=== PATIENT | female | born 2000 | race Caucasian/White ===

== ENCOUNTER 2023-03-20 16:25 | Outpatient (OUT) | payer BC, SELFPAY ==
--- NOTE | 2023-03-20 | US_ITS ---
The [address] [address] Patient Name: ANABEL ARMIJO MRN: [id number] date: 2000 Sex: F Assigned Patient Location: US Current Patient Location: LAB Accession/Order Number: [id number] Exam Date: 03/20/2023 16:50 Report Date: 03/20/2023 17:44 At the request of: JAYNE REVELES Procedure: US venous doppler LE BI EXAM: US venous doppler LE BI HISTORY: D68.51 Factor 5 Leiden Mutation . Bilateral leg pain for the past week. COMPARISON: None. TECHNIQUE: Multiple sonographic images of the deep veins of the lower extremities were obtained, supplemented with Doppler. FINDINGS: The deep veins of both lower extremities are fairly well visualized from the groin to the mid calf. No filling defect is identified in either side to indicate a thrombus. There is normal compression augmentation to flow bilaterally. US/US venous doppler LE BI IMPRESSION: There is no direct or indirect evidence of deep vein thrombosis in the lower extremities at this time. Electronically authenticated by: KALEB NICHOLE Date: 03/20/2023 17:44
== END 2023-03-20 16:26 | disposition home or self-care (01) ==
LOC: US 16:30
PROVIDERS: PCP Family Medicine; Visit Provider Family Medicine
DX: D68.51 Activated protein C resistance (principal)
CPT/HCPCS: 93970

== ENCOUNTER 2023-03-21 08:43 | Outpatient (OUT) | payer BC, SELFPAY ==
--- OUTSIDE RECORDS SUMMARY | 2023-03-21 08:46 | XMS_ITS | CCD ---
Author Name Unknown Address [address] [place] [address] Organization [facility] Care Team Providers Care Office Equipment Mechanic Name Role Phone Jayne Au Primary Care Provider DR JAYNE AU Attending Unavailable DR JAYNE AU Consulting Unavailable DR JAYNE AU Primary Care Unavailable DR JAYNE AU Admitting Unavailable Jayne Au MD Primary Care Provider [phone] Jayne Au MD Primary Care Provider [phone] MARY ALICE SHAH Referring Unavailabl e JAYNE AU Primary Care Unavailable SAMMY JORGENSEN Attending Unavailable Allergies Allergy Classification Reported Allergen(s) Allergy Type Date of Onset Reaction(s) Facility (2 sources) Penicillins Drug Allergy 1 Vomiting [facility] (1 source) Estrogens Drug Allergy 1 Other (See Comments) [employer] Work Phone: (1 source) Penicillins Propensity to adverse reactions to drug 1 [employer] Medications Current Medications Medication Drug Class(es) Dates Sig (Normalized) Sig (Original) cetirizine hydrochloride 10 mg oral tablet (3 sources) Histamine-1 Receptor Antagonist take 1 tablet by mouth once daily cetirizine (ZYRTEC) 10 MG tablet Take 10 mg by mouth daily 0 Active Comment on above: Take 10 mg by mouth as needed. lamoTRIgine 100 mg oral tablet (1 source) Mood Stabilizer, Anti-epileptic Agent Start: 03-31-2022 take 1 tablet by mouth at bedtime lamoTRIgine (LAMICTAL) 100 MG tablet TAKE 1 TABLET BY MOUTH AT BEDTIME 0 03/31/2022 Active norethindrone 0.35 mg oral tablet (3 sources) Start: 05-17-2020 take 1 tablet by mouth once daily norethindrone (ORTHO MICRONOR) 0.35 MG tablet Indications: Irregular menses Take 1 tablet by mouth daily 84 tablet 4 04/25/2021 Active Comment on above: TAKE 1 TABLET BY KENYA TH ONCE DAILY FOR 28 DAYS Completed/Discontinued Medications Medication Drug Class(es) Dates Sig (Normalized) Sig (Original) 24 hr desvenlafaxine succinate 50 mg extended release oral tablet (2 sources) Serotonin and Norepinephrine Reuptake Inhibitor Start: 04-18-2021 take 1 tablet by mouth once daily, then take 1 tablet by mouth every twenty-four hours desvenlafaxine ER (PRISTIQ) 50 mg 24 hr tablet Take 50 mg by mouth once daily. 0 07/13/2021 Active Comment on above: Take 50 mg by mouth once daily. trifarotene 0.05 mg/ml topical cream (1 source) Start: 07-19-2021 AKLIEF 0.005 % crea Problems Problem Classification Problem Date Documented Da te Episodic/Chronic Coagulation and hemorrhagic disorders (7 sources) Activated protein C resistance; Translations: [Factor V Leiden mutation] Onset: 04-30-2020 Chronic Menstrual disorders (2 sources) Irregular periods; Translations: [Irregular menstruation, unspecified] Onset: 04-29-2022 Chronic Other screening for suspected conditions (not mental disorders or infectious disease) (2 sources) Cancer cervix screening status; Translations: [Encounter for screening for malignant neoplasm of cervix] Onset: 04-29-2022 Episodic Results Test Name Value Interpretation Reference Range Facility Chlamydia/GC DNA, TPon 05-01 Chlamydia Probe, TP Negative Normal NEG [facility] Comment on above: Result Comment: CHLA MYDIA TRACHOMATIS DNA not detected by nucleic acid amplification. This test is intended for medical purposes only and is not valid for the evaluation of suspected sexual abuse or for other forensic purposes. In certain contexts, culture may be required to meet applicable laws and regulations for diagnosis of C. trachomatis and N. gonorrhoeae infections. Per 2014 CDC recommendations, this test does not include confirmation of positive results by an alternative nucleic acid target. Performed By: #### [facility] #### [facility] [employer] [facility] [place] [address] Consumer Science Teacher: Catalino Zamora MD Gonorrhea Probe, TP Negative Normal NEG [facility] Comment on above: Result Comment: NEIS SERIA GONORRHOEAE DNA not detected by nucleic acid amplification. This test is intended for medical purposes only and is not valid for the evaluation of suspected sexual abuse or for other forensic purposes. In certain contexts, culture may be required to meet applicable laws and regulations for diagnosis of C. trachomatis and N. gonorrhoeae infections. Per 2014 CDC recommendations, this test does not include confirmation of positive results by an alternative nucleic acid target. Performed By: #### C YTCGP #### [employer] [facility] [place], [place] [id number] Consumer Science Teacher: Catalino Zamora MD Cytologyon 04-29-2022 Cytology (NOTE) INTERPRETATION Cervical material, (ThinPrep vial, Imaging-assisted review): Specimen Adequacy: Satisfactory for evaluation. - Endocervical/transform ation zone component present. Descriptive Diagnosis: Negative for intraepithelial lesion or malignancy. Reactive cellular changes associated with inflammation (encompasses typical repair). Ironmolder: SSFam Jackson M.D. Electronically Signed Out rdd/05/09/2022 Source: A: Cervical material, (ThinPrep vial, Imaging-assisted review) Clinical History Z12.4 Encounter for screening for malignant neoplasm of cervix LMP: 04/24/2022 GYNECOLOGIC CYTOLOGY REPORT Patient Name: ANABEL BARBOSA [facility] Rec: [id number] Path Number: [id number] [facility] CONSULTING PATHOLOGISTS [facility] ANATOMIC PATHOLOGY [address] [place] [phone] Normal [facility] Comment on above: Performed By: #### P PPVP #### [employer] [address] [place] [address] [id number] Consumer Science Teacher: Catalino Zamora MD CBC W Auto Differential pane l (Bld)on 07-22-2021 Basophils (Bld) [#/Vol] 10*3/uL Normal <0.11 [facility] Comment on above: Order Comment: Speci men Type: BLOOD SPECIMEN Ordering Facility: [facility] Address: [address] [place] [phone] Performed By: #### 5 7021-8 #### [facility] CLIA [id number] [address] [place] [address] Basophils/100 WBC (Bld) 0.3 % Normal [facility] Comment on above: Order Comment: Speci men Type: BLOOD SPECIMEN Ordering Facility: [facility] Address: [address] [place] [address] Performed By: #### 5 7021-8 #### [facility] CLIA [id number] [address] [place] [address] Differential cell count method Nom (Bld) Auto Normal [facility] Comment on above: Order Comment: Speci men Type: BLOOD SPECIMEN Ordering Facility: [facility] Address: [address] [place] [address] Performed By: #### 5 7021-8 #### [facility] CLIA [id number] [address] [place] [address] Eosinophils (Bld) [#/Vol] 0.28 10*3/uL Normal <0.46 [facility] Comment on above: Order Comment: Speci men Type: BLOOD SPECIMEN Ordering Facility: [facility] Address: [address] [place] [address] Performed By: #### 5 7021-8 #### [facility] CLIA [id number] [address] [place] [address] Eosinophils/100 WBC (Bld) 3.9 % Normal [facility] Comment on above: Order Comment: Speci men Type: BLOOD SPECIMEN Ordering Facility: [facility] Address: [address] [place] [address] Performed By: #### 5 7021-8 #### [facility] CLIA [id number] [address] [place] [address] Erythrocyte distribution width (RBC) [Ratio] 12.5 % Normal 11.5-15.0 [facility] Comment on above: Order Comment: Speci men Type: BLOOD SPECIMEN Ordering Facility: [facility] Address: [address] [place] [address] Performed By: #### 5 7021-8 #### [facility] CLIA [id number] [address] [place] [address] Hematocrit (Bld) [Volume fraction] 46.1 % High 36.0-46.0 [facility] Comment on above: Order Comment: Speci men Type: BLOOD SPECIMEN Ordering Facility: [facility] Address: [address] [place] [address] Performed By: #### 5 7021-8 #### [facility] CLIA [id number] [address] [place], [place] [phone] Hemoglobin (Bld) [Mass/Vol] 15.4 g/dL Normal 11.5-15.5 [facility] Comment on above: Order Comment: Speci men Type: BLOOD SPECIMEN Ordering Facility: [facility] Address: [address] [place] [address] Performed By: #### 5 7021-8 #### [facility] CLIA [id number] [address] [place] [address] IMMATURE GRAN % 1.5 % Normal [facility] Comment on above: Order Comment: Speci men Type: BLOOD SPECIMEN Ordering Facility: [facility] Address: [address] [place] [address] Performed By: #### 5 7021-8 #### [facility] CLIA [id number] [address] [place] [address] IMMATURE GRAN ABS 0.11 k/uL High <0.10 [facility] Comment on above: Order Comment: Speci men Type: BLOOD SPECIMEN Ordering Facility: [facility] Address: [address] [place] [address] Performed By: #### 5 7021-8 #### [facility] CLIA [id number] [address] [place] [address] Lymphocytes (Bld) [#/Vol] 2.14 10*3/uL Normal 1.00-4.00 [facility] Comment on above: Order Comment: Speci men Type: BLOOD SPECIMEN Ordering Facility: [facility] Address: [address] [place] [address] Performed By: #### 5 7021-8 #### [facility] CLIA [id number] [address] [place] [address] Lymphocytes/100 WBC (Bld) 30.1 % Normal [facility] Comment on above: Order Comment: Speci men Type: BLOOD SPECIMEN Ordering Facility: [facility] Address: [address] [place] [address] Performed By: #### 5 7021-8 #### [facility] CLIA [id number] [address] [place] [address] MCH (RBC) [Entitic mass] 27.9 pg Normal 26.0-34.0 [facility] Comment on above: Order Comment: Speci men Type: BLOOD SPECIMEN Ordering Facility: [facility] Address: [address] [place] [address] Performed By: #### 5 7021-8 #### [facility] CLIA [id number] [address] [place] [address] MCHC (RBC) [Mass/Vol] 33.4 g/dL Normal 30.5-36.0 [facility] Comment on above: Order Comment: Speci men Type: BLOOD SPECIMEN Ordering Facility: [facility] Address: [address] [place], [place] [address] Performed By: #### 5 7021-8 #### [facility] CLIA [id number] [address] [place] [address] MCV (RBC) [Entitic vol] 83.7 fL Normal 80.0-100.0 [facility] Comment on above: Order Comment: Speci men Type: BLOOD SPECIMEN Ordering Facility: [facility] Address: [address] [place], [place] [address] Performed By: #### 5 7021-8 #### [facility] CLIA [id number] [address] [place] [address] Monocytes (Bld) [#/Vol] 0.47 10*3/uL Normal <0.87 [facility] Comment on above: Order Comment: Speci men Type: BLOOD SPECIMEN Ordering Facility: [facility] Address: [address] [place] [address] Performed By: #### 5 7021-8 #### [facility] CLIA [id number] [address] [place] [address] Monocytes/100 WBC (Bld) 6.6 % Normal [facility] Comment on above: Order Comment: Speci men Type: BLOOD SPECIMEN Ordering Facility: [facility] Address: [address] [place] [address] Performed By: #### 5 7021-8 #### [facility] CLIA [id number] [address] [place] [address] Neutrophils (Bld) [#/Vol] 4.09 10*3/uL Normal 1.45-7.50 [facility] Comment on above: Order Comment: Speci men Type: BLOOD SPECIMEN Ordering Facility: [facility] Address: [address] [place] [address] Performed By: #### 5 7021-8 #### [facility] CLIA [id number] [address] [place] [address]29 Neutrophils/100 WBC (Bld) 57.6 % Normal [facility] Comment on above: Order Comment: Speci men Type: BLOOD SPECIMEN Ordering Facility: [facility] Address: [address] [place] [address] Performed By: #### 5 7021-8 #### [facility] CLIA [id number] [address] [place] [address] 11907 Nucleated RBC (Bld) [#/Vol] 10*3/uL Normal <0.01 [facility] Comment on above: Order Comment: Speci men Type: BLOOD SPECIMEN Ordering Facility: [facility] Address: [address] [place], [place] [address] Performed By: #### 5 7021-8 #### [facility] CLIA [id number] [address] [place] [address] Nucleated RBC/100 WBC (Bld) [Ratio] 0.0 /100 WBC Normal [facility] Comment on above: Order Comment: Speci men Type: BLOOD SPECIMEN Ordering Facility: [facility] Address: [address] [place] [address] Performed By: #### 5 7021-8 #### [facility] CLIA [id number] [address] [place] [address]17 Platelet mean volume (Bld) [Entitic vol] 9.0 fL Normal 9.0-12.7 [facility] Comment on above: Order Comment: Speci men Type: BLOOD SPECIMEN Ordering Facility: [facility] Address: [address] [place] [address] Performed By: #### 5 7021-8 #### [facility] CLIA [id number] [address] [place] [address]8547 Platelets (Bld) [#/Vol] 314 10*3/uL Normal 150-400 [facility] Comment on above: Order Comment: Speci men Type: BLOOD SPECIMEN Ordering Facility: [facility] Address: [address] [place], [place] [address] Performed By: #### 5 7021-8 #### [facility] CLIA [id number] [address] [place] [address]99 RBC (Bld) [#/Vol] 5.51 10*6/uL High 3.90-5.20 [facility] Comment on above: Order Comment: Speci men Type: BLOOD SPECIMEN Ordering Facility: [facility] Address: [address] [place] [address] Performed By: #### 5 7021-8 #### [facility] CLIA [id number] [address] [place] [address] WBC (Bld) [#/Vol] 7.11 10*3/uL Normal 3.70-11.00 [facility] Comment on above: Order Comment: Speci men Type: BLOOD SPECIMEN Ordering Facility: [facility] Address: [address] [place] [address] Performed By: #### 5 7021-8 #### [facility] CLIA [id number] [address] [place] [address] CNOVSPon 07-22-2021 CNOVSP Visit (SP) Office ([place]) ANABEL BARBOSA ([id number]) 1 F Date Time Provider Department 07/22/21 10:00 AM JERMAINE MOYA During your visit today, we recorded the following information about you: Temperature Pulse Respiration Blood pressure 98.8 degrees 78/minute 16/minute 111/64 Weight Height Last Period 47 kg 1.499 m 06/26/20 Jermaine Moya MD 07/23/2021 11:22 AM Signed NAME: Anabel Barbosa CLINIC NO.: [id number] DATE OF SERVICE: July 22, 2021 Some elements in this clinic note that are critical to medical decision making have been carefully reviewed and included from a prior clinic note dated: May 28, 2020 Referring Provider: Jayne Au Additional Clinicians involved in Anabel Sharon's care: CC: Consultation for factor V leiden. ASSESSMENT: 20 year old woman who is otherwise healthy found to be heterozygous for Factor V Leiden mutation which represents a resistance to activated protein C. There is no recommended prophylaxis except for minimizing risk factors such as estrogen containing control, smoking, inactivity, , surgery and injury. It would be velez for her to have at least Bi-annual visits with a inner diameter grinder tool. PLAN: 1. RTC in 2 year, Repeat CBC. TREATMENT TO DATE: 1. N/A HPI: Updated Visit, July 22, 2021: Graduated from [employer] with communications major and sociology minor. 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 She is doing well and has no immediate issues or concerns. No thrombotic events. No excessive bleeding Initial Visit, May 28, 2020: Anabel Barbosa presents today Hematology and Oncology evaluation. She is a 19 year old female who is accompanied by her mother Kyara Rodriguez for consultation regarding a newly diagnosed Factor V Leiden. She is a heterozygote as is her sister. Workup was prompted because her Father had DVT and subsequent PE. The following workup showed him to have Factor V leiden. She has no other symptoms and has no notable risk factors for now. She was recently changed to a non-estrogen BCP. We discussed in detail potential risks of clotting. There was a concern for easy bruising but the patient states that this has not been an issue but may have been many (5-6) yearsago. She has no evidence of bruising on visible skin. She has multiple tattoos without any issues. Coags were normal as was her CBC, CMP. REVIEW OF SYSTEMS Per HPI and otherwise negative by full review of organ systems. ECOG PERFORMANCE STATUS: 0 PHYSICAL EXAMINATION: Vitals: BP 111/64 Pulse 78 Temp (Src) 98.8 (Temporal) Resp 16 Ht 4' 11.016 (1.50m) Wt 103 lb 9.6 oz (47.0kg) SpO2 100% LMP 06/26/2020 BMI 20.91 kg/(m2). Body surface area is 1.4 meters squared. Exam limited to gross visualization where appropriate due to COVID-19. Gen.: This is an age-appropriate patient in no acute distress. Head: Appears atraumatic with no visible lesions. Eyes: Pupils equally round and reactive to light, extraocular muscles are intact. Neck: Supple. Mouth: Mucous membranes appeared to be moist. Respiratory: Appears to be respiring comfortably. Neurologic: Nonfocal to gross visualization. Alert and oriented ?3. Psychiatric: No evidence of inappropriate anxiety or depression. Skin: Visible areas of skin without rash, lesions, wounds or petechiae. ALLERGIES: ALLERGIES Allergen Reactions - Penicillins Vomiting MEDICATIONS: desvenlafaxine ER (PRISTIQ) 50 mg 24 hr tablet Take 50 mg by mouth once daily. AKLIEF 0.005 % crea Norethindrone, Contraceptive, 0.35 mg tablet TAKE 1 TABLET BY MOUTH ONCE DAILY FOR 28 DAYS cetirizine (ZYRTEC) 10 mg tablet Take 10 mg by mouth as needed. LABORATORY VALUES: WBC (k/uL) Date Value 07/22/2021 7.11 RBC (m/uL) Date Value 07/22/2021 5.51 (H) Hemoglobin (g/dL) Date Value 07/22/2021 15.4 Hematocrit (%) Date Value 07/22/2021 46.1 (H) MCV (fL) Date Value 07/22/2021 83.7 MCH (pg) Date Value 07/22/2021 27.9 MCHC (g/dL) Date Value 07/22/2021 33.4 RDW-CV (%) Date Value 07/22/2021 12.5 Platelet Count (k/uL) Date Value 07/22/2021 314 MPV (fL) Date Value 07/22/2021 9.0 Glucose (mg/dL) Date Value 07/22/2021 65 (L) BUN (mg/dL) Date Value 07/22/2021 13 Creatinine (mg/dL) Date Value 07/22/2021 0.61 Sodium (mmol/L) Date Value 07/22/2021 140 Potassium (mmol/L) Date Value 07/22/2021 3.9 Chloride (mmol/L) Date Value 07/22/2021 102 CO2 (mmol/L) Date Value 07/22/2021 26 Protein, Total (g/dL) Date Value 07/22/2021 7.8 Albumin (g/dL) Date Value 07/22/2021 4.9 Calcium, Total (mg/dL) Date Value 07/22/2021 10.0 Alkaline Phosphatase (U/L) Date Value 07/22/2021 61 Bilirubin, Total (mg/dL) Date Value 07/22/2021 0.2 AST (U/L) Date Value 07/22/2021 18 ALT (U/L) Date Value 07/22/2021 18 DIAGNOSIS: (D68.51) Factor V Leiden carrier (HCC) (pr (more content not included)... Normal [facility] metabolic 2000 panelon 07-22-2021 Albumin [Mass/Vol] 4.9 g/dL Normal 3.9-4.9 [facility] Comment on above: Order Comment: Speci men Type: BLOOD SPECIMEN Ordering Facility: [facility] Address: [address] [place] [address] Performed By: #### 2 4323-8 #### [facility] CLIA [id number] [address] [place] [address] ALP [Catalytic activity/Vol] 61 U/L Normal 34-123 [facility] Comment on above: Order Comment: Speci men Type: BLOOD SPECIMEN Ordering Facility: [facility] Address: [address] [place] [address] Performed By: #### 2 4323-8 #### [facility] CLIA [id number] [address] [place] [address] ALT [Catalytic activity/Vol] 18 U/L Normal 7-38 [facility] Comment on above: Order Comment: Speci men Type: BLOOD SPECIMEN Ordering Facility: [facility] Address: [address] [place] [address] Performed By: #### 2 4323-8 #### [facility] CLIA [id number] [address] [place] [address] Anion gap [Moles/Vol] 12 mmol/L Normal 9-18 [facility] Comment on above: Order Comment: Speci men Type: BLOOD SPECIMEN Ordering Facility: [facility] Address: [address] [address] Performed By: #### 2 4323-8 #### [facility] CLIA [id number] [address] [place] [address] AST [Catalytic activity/Vol] 18 U/L Normal 13-35 [facility] Comment on above: Order Comment: Speci men Type: BLOOD SPECIMEN Ordering Facility: [facility] Address: [address] [address] Performed By: #### 2 4323-8 #### [facility] CLIA [id number] [address] [place] [address] Bilirubin [Mass/Vol] 0.2 mg/dL Normal 0.2-1.3 [facility] Comment on above: Order Comment: Speci men Type: BLOOD SPECIMEN Ordering Facility: [facility] Address: [address] [place] [address] Performed By: #### 2 4323-8 #### [facility] CLIA [id number] [address] [place] [address] Calcium [Mass/Vol] 10.0 mg/dL Normal 8.5-10.2 [facility] Comment on above: Order Comment: Speci men Type: BLOOD SPECIMEN Ordering Facility: [facility] Address: [address] [place] [address] Performed By: #### 2 4323-8 #### [facility] CLIA [id number] [address] [place] [address] Chloride [Moles/Vol] 102 mmol/L Normal 97-105 [facility] Comment on above: Order Comment: Speci men Type: BLOOD SPECIMEN Ordering Facility: [facility] Address: [address] [place] [address] Performed By: #### 2 4323-8 #### [facility] CLIA [id number] [address] [place] [address]66 CO2 [Moles/Vol] 26 mmol/L Normal 22-30 [facility] Comment on above: Order Comment: Speci men Type: BLOOD SPECIMEN Ordering Facility: [facility] Address: [address] [place] [address] Performed By: #### 2 4323-8 #### [facility] CLIA [id number] [address] [place] [address] Creatinine [Mass/Vol] 0.61 mg/dL Normal 0.58-0.96 [facility] Comment on above: Order Comment: Speci men Type: BLOOD SPECIMEN Ordering Facility: [facility] Address: [address] [id number] Performed By: #### 2 4323-8 #### [facility] CLIA [id number] [address] [place] [address] ESTIMATED GLOMERULAR FILTRATION RATE 131 mL/min/1.73m??? Normal >=60 [facility] Comment on above: Order Comment: Speci men Type: BLOOD SPECIMEN Ordering Facility: [facility] Address: [address] [place] [address] Result Comment: Graciela mated Glomerular Filtration Rate (eGFR) is calculated using the 2020 CKD-EPI creatinine equation. This equation utilizes serum creatinine, sex, and age as parameters. The creatinine assay has traceable calibration to isotope dilution-mass spectrometry. Refer to KDIGO guidelines for clinical interpretation. In patients with unstable renal function, e.g. those with acute kidney injury, the eGFR may not accurately reflect actual GFR. Performed By: #### 2 4323-8 #### [facility] CLIA [id number] [address] [place], [place] [id number] Glucose [Mass/Vol] 65 mg/dL Low 74-99 [facility] Comment on above: Order Comment: Radhai seun Type: BLOOD SPECIMEN Ordering Facility: [facility] Address: [address] [place] [address] Result Comment: The [place] Diabetes Association (ADA) provides guidance for cutoff values for fasting glucose and random glucose. The ADA defines fasting as no caloric intake for at least 8 hours. Fasting plasma glucose results between 100 to 125 mg/dL indicate increased risk for diabetes (prediabetes). Fasting plasma glucose results greater than or equal to 126 mg/dL meet the criteria for diagnosis of diabetes. In the absence of unequivocal hyperglycemia, results should be confirmed by repeat testing. In a patient with classic symptoms of hyperglycemia or hyperglycemic crisis, random plasma glucose results greater than or equal to 200 mg/dL meet the criteria for diagnosis of diabetes. Reference: Standards of Medical Care in Diabetes 2016, [place] [employer] Association. Diabetes Care. 2016.39(Suppl 1). Performed By: #### 2 4323-8 #### [facility] CLIA [id number] [address] [place] [id number] Potassium [Moles/Vol] 3.9 mmol/L Normal 3.7-5.1 [facility] Comment on above: Order Comment: Speci men Type: BLOOD SPECIMEN Ordering Facility: [facility] Address: [address] [place] [address] Performed By: #### 2 4323-8 #### [facility] CLIA [id number] [address] [place] [address] 84571 Protein [Mass/Vol] 7.8 g/dL Normal 6.3-8.0 [facility] Comment on above: Order Comment: Speci men Type: BLOOD SPECIMEN Ordering Facility: [facility] Address: [address] [place] [address] Performed By: #### 2 4323-8 #### [facility] CLIA [id number] [address] [place], [place] [id number] Sodium [Moles/Vol] 140 mmol/L Normal 136-144 [facility] Comment on above: Order Comment: Speci men Type: BLOOD SPECIMEN Ordering Facility: [facility] Address: [address] [place] [address] Performed By: #### 2 4323-8 #### [facility] CLIA [id number] [address] [place] [address] Urea nitrogen [Mass/Vol] 13 mg/dL Normal 7-21 [facility] Comment on above: Order Comment: Speci men Type: BLOOD SPECIMEN Ordering Facility: [facility] Address: [address] [place] [address] Performed By: #### 2 4323-8 #### [facility] CLIA [id number] [address] [place] [address] Emi 07-15-2021 LEE ANN Telephone (HEMASA) ALEKSANDERANABEL ([id number]) 1 F Date Time Provider Department 07/15/21 JERMAINE MOYA During your visit today, we recorded the following information about you: Lakeshia Philip MA 07/15/2021 3:45 PM Signed Patient has an appt on 07/22/21. Would you like labs, if so please place orders. CELESTE Carl MD 07/16/2021 8:14 AM Signed Addended by: JERMAINE MOYA on: 07/16/2021 08:14 AM Modules accepted: Orders Allergies As of Date: 07/15/2021 Noted Allergy Reaction PENICILLINS 04/18/2020 11 - Vomiting Date Reviewed: 07/15/2021 Reviewed by: Jaret Angulo APRN.DIESEL STATIONARY ENGINEER - Fully Assessed Reason for Visit: Lab Orders [1688] Primary Visit Diagnosis:Factor V Leiden carrier (HCC) [D68.51] Order(s):CBC + DIFF [SQCBCDIF] Order #: [id number] FUTURE COMP METABOLIC PANEL [SQCMP] Order #: [id number] FUTURE CBC + DIFF [SQCBCDIF] Order #: [id number] FUTURE COMP METABOLIC PANEL [SQCMP] Order #: [id number] FUTURE Prescriptions as of 07/16/2021 - Norethindrone, Contraceptive, 0.35 mg tablet TAKE 1 TABLET BY MOUTH ONCE DAILY FOR 28 DAYS - cetirizine (ZYRTEC) 10 mg tablet Take 10 mg by mouth as needed. Problem List As Of Date: 07/15/2021 (None) Encounter Status:Closed by JARET ANGULO on 07/15/21 Normal [facility] FACTOR V LEIDEN MUTATION HORACIO LYSISon 05-14-2020 Comments Comment Normal [facility] Comment on above: Result Comment: Simu ltaneous Risks: If a patient possesses two or more congenital or acquired thrombophilic risk factors, the risk of thrombosis may rise to more than the sum of the risk ratios for the individual risk factors. For instance, a combination of the prothrombin [id number] mutation and the factor V Leiden mutation may confer an increase in thrombotic risk in the range of 20-30 fold. Recommendations for Genetic Counseling: The factor V Leiden mutation is an inherited characteristic. If the mutation is present, we recommend that the patient and their family consider genetic counseling to obtain additional information on inheritance and to identify other family members at risk. Testing Characteristics: Genetic testing provides exceptionally high sensitivity and specificity. Inaccurate results are limited to rare polymorphisms in primer binding sites and to misidentification of specimens by collectors or laboratory personnel. This assay detects only the factor V Leiden mutation and does not detect other genetic abnormalities. This test was developed and its performance characteristics determined by [employer]. It has not been cleared or approved by the Food and Drug Administration. References: Kelley CASH, et al. Thromb Haemost. 1995;74:449. Jack Noel Mol.Diagn. 2001;6(3):201. Bryanna J, et al. Thromb Haemost. 2001;86:809-16. Moi C, et al. Thromb Haemost. 1996;76:229. Performed By: #### F VLREF #### [facility] [address] [place] [address] Patrice Arceo Factor V Leiden Results Comment Normal [facility] Comment on above: Result Comment: G-A (Normal-Mutant) Positive - Heterozygous for factor V Leiden mutation. Performed By: #### F VLREF #### [facility] [address] [place] [address] Patrice Arceo Interpretation Comment Normal [facility] Comment on above: Result Comment: The factor V Leiden mutation is present on one copy of the patient's factor V gene. Presence of the heterozygous factor V Leiden mutation confers an approximate 5-fold increase in the risk of venous thrombosis. Performed By: #### F VLREF #### [facility] [address] [place] [address] Patrice Arceo Methodology Comment Normal [facility] Comment on above: Result Comment: Remedios ent DNA was evaluated for the factor V Leiden mutation at nucleotide 1691 using allele specific PCR technology followed by gel electrophoresis. Performed By: #### F VLREF #### [facility] [address] [place] [address] Patrice Arceo VENOUS THROMBOSIS PROFILEon 05-11-2020 Act. Prt Resist w/FV Defic. 1.9 ratio Critically low [facility] Comment on above: Result Comment: A lo w activated protein C resistance (APCR) is a risk factor for venous thrombosis and is a screen for the Factor V Leiden mutation. Consider molecular analysis for this mutation. Other causes for abnormal APCR are uncommon and include other rare mutations in the Factor V molecule, and certain drug therapies, including thalidomide therapy, presence of a lupus anticoagulant, increased Factor VIII levels, and autoantibodies against activated protein C. Reference Range: 2.2 - 3.5 Performed By: #### V ENTBP #### [facility] [address] [place] [address] Patrice Arceo Anticardiolipin Ab, IgG <10 Normal [facility] Comment on above: Result Comment: Refe rence Range: Negative: <15 Indeterminate: 15 - 20 Low to medium positive: >20 - 80 High positive: >80 Performed By: #### V ENTBP #### [facility] [address] [place] [address] Patrice Arceo Anticardiolipin Ab, IgM 13 MPL Normal [facility] Comment on above: Result Comment: Refe rence Range: Negative: <13 Indeterminate: 13 - 20 Low to medium positive: >20 - 80 High positive: >80 Performed By: #### V ENTBP #### [facility] [address] [place], [place] [id number] Patrice Arceo Antithrombin Activity Plasma 106 % Normal [facility] Comment on above: Result Comment: Dire ct oral anticoagulants such as rivaroxaban, apixaban and edoxaban will lead to spuriously elevated antithrombin activity levels possibly masking a deficiency. Reference Range: 7 months and older: 75 - 135 Performed By: #### V ENTBP #### [facility] [address] [place], [place] [id number] Patrice Arceo APTT 1:1 RD PROJECT MANAGER NIY Normal [facility] Comment on above: Result Comment: Test ing Not Indicated Not indicated This test was developed and its performance characteristics determined by [employer]. It has not been cleared or approved by the [place] Food and Drug Administration. Performed By: #### V ENTBP #### [facility] [address] [address] Patrice Arceo APTT 1:1 Saline NIY Normal The [facility] Comment on above: Result Comment: Test ing Not Indicated Not indicated This test was developed and its performance characteristics determined by [employer]. It has not been cleared or approved by the Food and Drug Administration. Performed By: #### V ENTBP #### [facility] [address] [id number] Patrice Arceo aPTT Coag (Bld) [Time] 25.6 s Normal [facility] Comment on above: Result Comment: This test has not been validated for monitoring unfractionated heparin therapy. aPTT-based therapeutic ranges for unfractionated heparin therapy have not been established. Consider ordering Heparin anti-Xa (unfractionated). Reference Range: 18 years and older: 22.9 - 30.2 Performed By: #### V ENTBP #### [facility] [address] [address] Patricehima Arceo Beta-2 Glycoprotein I, IgA <10 Normal [facility] Comment on above: Result Comment: The reference interval reflects a 3SD or 99th percentile interval. Reference Range: Negative: <26 Performed By: #### V ENTBP #### [facility] [address] [place] [address] Patrice Arceo Beta-2 Glycoprotein I, IgG <10 Normal [facility] Comment on above: Result Comment: The reference interval reflects a 3SD or 99th percentile interval, which is thought to represent a potentially clinically significant result in accordance with the International Consensus Statement on the classification criteria for definitive antiphospholipid syndrome (APS). J Thromb Wfif4149;4:295-306. Reference Range: Negative: <21 Performed By: #### V ENTBP #### [facility] [address] [place], [place] [id number] Patricehima Sheareren Beta-2 Glycoprotein I, IgM 12 SMU Normal [facility] Comment on above: Result Comment: The reference interval reflects a 3SD or 99th percentile interval, which is thought to represent a potentially clinically significant result in accordance with the International Consensus Statement on the classification criteria for definitive antiphospholipid syndrome (APS). J Thromb Onwg2547;4:295-306. Reference Range: Negative: <33 Performed By: #### V ENTBP #### [facility] [address] [place], [place] [address] Patrice Arceo Comments: Comment Normal [facility] Comment on above: Result Comment: Simu ltaneous Risks: If a patient possesses two or more congenital or acquired thrombophilic risk factors, the risk of thrombosis may rise to more than the sum of the risk ratios for the individual risk factors. For instance, a combination of the prothrombin [id number] mutation and the factor V Leiden mutation may confer an increase in thrombotic risk in the range of 20-30 fold. Recommendations for Genetic Counseling: The prothrombin gene mutation is an inherited characteristic. If the mutation is present, we recommend that the patient and their family consider genetic counseling to obtain additional information on inheritance and to identify other family members at risk. Testing Characteristics: Genetic testing provides exceptionally high sensitivity and specificity. Inaccurate results are limited to rare polymorphisms in primer binding sites and to misidentification of specimens by collectors or laboratory personnel. This assay detects only the prothrombin [id number] mutation and does not detect other genetic abnormalities. This test was developed and its performance characteristics determined by [employer]. It has not been cleared or approved by the Food and Drug Administration. References: Phil K, et al. Br J of Haem. 1997;98:907. Mckenzie STANFORD, et al. Br J of Haem. 1997;98:353. Keyla-Reid and Mik Mol.Diagn. 2001;6(3):201. Bryanna Mann, et al. Thromb Haemost. 2001;86:809-16. Marta Bryant et al. Thromb Haemost. 1999;82:1583. Performed By: #### V ENTBP #### [facility] [address] [place], [place] [address] Patrice Arceo DRVVT Confirm Seconds NIY Normal [facility] Comment on above: Result Comment: Test ing Not Indicated Not indicated Performed By: #### V ENTBP #### [facility] [address] [place], [place] [address] Patrice Arceo DRVVT Ratio NIY Normal [facility] Comment on above: Result Comment: Test ing Not Indicated Not indicated Performed By: #### V ENTBP #### [facility] [address] [id number] Patrice Marielos DRVVT Screen Seconds 33.2 sec Normal [facility] Comment on above: Result Comment: Refe rence Range: <= 47.0 Performed By: #### V ENTBP #### [facility] [address] [place] [address] Patricehima Arceo Factor II Gene Mutation Comment Normal [facility] Comment on above: Result Comment: G-G (Normal-Normal) No prothrombin [id number] mutation present. Performed By: #### V ENTBP #### [facility] [address] [place] [address] Patrice Arceo Factor VIII Activity 150 % Normal [facility] Comment on above: Result Comment: Refe rence Range: 57 - 163 Performed By: #### V ENTBP #### [facility] [address] [place] [address] Patrice Arceo Hexagonal Phospholipid Neutral 0 sec Normal [facility] Comment on above: Result Comment: This value is NEGATIVE. This is a qualitative assay and is therefore reported as positive for lupus anticoagulant or negative. The quantitative value is provided as an aid in diagnosis. Reference Range: 0 - 11 Performed By: #### V ENTBP #### [facility] [address] [place] [address] Patrice Marielos Homocysteine 6.8 umol/L Normal [facility] Comment on above: Result Comment: Homo cysteine levels in patients >60 years increase 1-2 umol/L. Reference Range: 5.0 - 15.0 Performed By: #### V ENTBP #### [facility] [address] [place], [place] [id number] Patrice Marielos Interpretation Comment Normal [facility] Comment on above: Result Comment: Whil e the patient does not possess this risk factor, other thrombotic risk factors may be detected through systematic clinical laboratory analysis. Performed By: #### V ENTBP #### [facility] [address] [place], [place] [id number] Patrice Marielos LAC Interpretation Comment Normal [facility] Comment on above: Result Comment: A maxine pus anticoagulant is not detected. All antiphospholipid antibodies evaluated are normal. As antibody titers may fluctuate with time, repeat testing may be indicated. Please contact [employer] [facility] if further clarification is needed. Performed By: #### V ENTBP #### [facility] [address] [place], [place] [address] Patrice Arceo Methodology Comment Normal [facility] Comment on above: Result Comment: Remedios ent DNA was evaluated for the factor II gene mutation at nucleotide using PCR amplification followed by restriction analysis and gel electrophoresis. Performed By: #### V ENTBP #### [facility] [address] [place], [place] [address] Patrice Arceo Protein S Antigen Free 89 % Normal [facility] Comment on above: Result Comment: Refe rence Range: 7 months and older: 57 - 157 This test was developed and its performance characteristics determined by [employer]. It has not been cleared or approved by the Food and Drug Administration. Performed By: #### V ENTBP #### [facility] [address] [place], [place] [address] Patrice Arceo Prt C Activity (Chromogenic) 150 % Normal [facility] Comment on above: Result Comment: Refe rence Range: 17 years and older: 73 - 180 Performed By: #### V ENTBP #### [facility] [address] [place] [address] Patrice Arceo Vital Signs Date Time Vital Sign Value Performing Clinician Deb catherine 07-22-2021 09:53-0400 Body height 149.9 cm Jermaine Moya MD Work Phone: [facility] 07-22-2021 09:53-0400 Body temperature 98.8 [degF] Jermaine Moya MD Work Phone: [facility] 07-22-2021 09:53-0400 Body weight 46.99 kg Jermaine Moya MD Work Phone: [facility] 07-22-2021 09:53-0400 Diastolic blood pressure 64 mm[Hg] Jermaine Moya MD Work Phone: [facility] 07-22-2021 09:53-0400 Heart rate 78 /min Jermaine Moya MD Work Phone: [facility] 07-22-2021 09:53-0400 Respiratory rate 16 /min Jermaine Moya MD Work Phone: [facility] 07-22-2021 09:53-0400 SaO2% (BldA) [Mass fraction] 100 % Jermaine Moya MD Work Phone: [facility] 07-22-2021 09:53-0400 Systolic blood pressure 111 mm[Hg] Jermaine Moya MD Work Phone: [facility] Encounters Encounter Date Encounter Type Care Provider Facility Start: 03-13-2023 End: 03-13-2023 ambulatory SAMMY JORGENSEN Not Available Start: 04-29-2022 End: 04-30-2022 ambulatory MARY ALICE SHAH [facility] Start: 04-29-2022 End: 04-29-2022 Subsequent hospital visit by physician Jayne Au MD Work Phone: [facility] Comment on above: Irregular menses; Screening for malignant neoplasm of cervix Start: 07-22-2021 End: 07-22-2021 ambulatory Jermaine Moya MD Work Phone: Hematology/Oncology Comment on above: Factor V Leiden goff ier (HCC) (Primary Dx) Start: 07-22-2021 End: 07-22-2021 Patient encounter procedure Jermaine Moya MD Work Phone: [facility] Start: 07-15-2021 Telephone encounter Jermaine navas MD Work Phone: Hematology/Oncology Comment on above: Lab Orders Start: 05-24-2020 End: 05-24-2020 Chart abstracting Jermaine Moya Work Phone: Hematology/Oncology Start: 05-16-2020 End: 05-16-2020 Patient encounter procedure External Provider [facility] Start: 05-16-2020 Results Only External Provider Exter nal-Non[facility] Start: 04-30-2020 End: 05-01-[address] JAYNE AU Facility:[facility]1 Procedures Date Procedure Procedure Detail Performing Clinician Start: 07-22-2021 Adult depression screening assessment Jermaine Moya MD Work Phone: Start: 05-16-2020 EXTERNAL LAB External P cayla Plan of Treatment Date Care Activity Detail Author Start: 04-30-2023 End: 04-30-2023 Patient encounter procedure 04/30/2023 Office Visit Obstetrics and Gynecology Mary Alice Shah, SLEEVE TAILOR - CN [address] [facility] [address] [place] [address] [facility] Start: 08-26-2022 DTaP/Tdap/Td vaccine (7 - Td or Tdap) DTaP/Tdap/Td vaccine (7 - Td or Tdap) [facility] Start: 07-23-2022 End: 07-23-2022 Nursing evaluation of patient and report 07/23/2022 Nurse Only Obstetrics and Gynecology [facility] Start: 07-22-2022 Adult depression screening assessment DEPRESSION SCREENING [facility] Start: 11-07-2021 Influenza vaccination INFLUENZ A (Season Ended) [facility] Start: 10-07-2021 Influenza vaccination Flu vaccine (# 1) [facility] Start: 2021 Screening for malign ant neoplasm of cervix Pap smear [facility] Start: 07-25-2021 End: 07-22-2022 CBC W Auto Differential panel - Blood CBC + DIFF Lab Routine Factor V Leiden carrier (HCC) Expected: 07/25/2021 (Approximate), Expires: 07/22/2022 [facility] Work Phone: Comment on above: Expected: 07/25/2021 (Approximate), Expires: 07/22/2022 Start: 07-15-2021 End: 09-14-2021 CBC W Auto Differential panel - Blood CBC + DIFF Lab Routine Factor V Leiden carrier (HCC) Expected: 07/15/2021, Expires: 09/14/2021 [facility] Work Phone: Comment on above: Expected: 07/15/2021 , Expires: 09/14/2021 Start: 07-15-2021 End: 09-14-2021 Comprehensive metabolic 2000 panel - Serum or Plasma COMP METABOLIC PANEL Lab Routine Factor V Leiden carrier (HCC) Expected: 07/15/2021, Expires: 09/14/2021 [facility] Work Phone: Comment on above: Expected: 07/15/2021 , Expires: 09/14/2021 Start: 04-22-2021 COVID-19 Vaccine (4 - Booster for Pfizer series) COVID-19 Vaccine (4 - Booster for Pfizer series) [facility] Start: 11-08-2019 Influenza vaccination INFLUENZA (#1) [facility] Start: 08-01-2019 Urine microalbumin profile DTAP,TDAP,TD (1 - Tdap) [facility] Start: 2018 CHLAMYDIA SCREENING (18-24) CHLAMYDIA SCREENING (18-24) [facility] Start: 2018 GC (GONORRHEA) SCREE SIS (18-24) GC (GONORRHEA) SCREENING (18-24) [facility] Start: 2018 HEPATITIS C SCREENING [facility]PATITIS C [facility] Start: 2018 Hepatitis C screening Hepatitis C al michele [facility] Start: 2018 HIV SCREENING HIV SCREENING [facility] Start: 2016 Screening for Chlamy funmilayo trachomatis Chlamydia/GC screen [facility] Start: 08-01-2015 HIV screening HIV screen [facility] Start: 2014 PEDS TO ADULT TRANSI TION ANNUAL ASSESSMENT PEDS TO ADULT TRANSITION ANNUAL ASSESSMENT [facility] Start: 2012 Adult depression screening assessment DEPRESSION SCREENING [facility] Start: 2012 Depression Screen Depression Screen [facility] Start: 2012 PEDS TO ADULT TRANSI TION INITIAL DISCUSSION PEDS TO ADULT TRANSITION INITIAL DISCUSSION [facility] Start: 08-01-2011 HPV VACCINE (1 - 2-d ose series) HPV VACCINE (1 - 2-dose series) [facility] Start: 2005 COVID-19 VACCINE (#1) COVID-19 VACCI NE (#1) [facility] Start: 01-31-2002 Hepatitis A vaccine (2 of 2 - 2-dose series) Hepatitis A vaccine (2 of 2 - 2-dose series) [facility] End: 04-29-2022 C.trachomatis N.gonorrhoeae DNA, Thin Prep [facility] Work Phone: Comment on above: 1 Occurrences starti ng 04/29/2022 until 04/29/2022 End: 04-29-2022 Cytopathology procedure, preparation of smear, genital source [facility] Routine Screening for malignant neoplasm of cervix 1 Occurrences starting 04/29/2022 until 04/29/2022 [employer] Work Phone: Comment on above: 1 Occurrences starti ng 04/29/2022 until 04/29/2022 [facility] Immunizations Immunization Date Immunization Notes Care Provider Shruti swan 2013 zoster vaccine, live Jayne Au MD Work Phone: [facility] Work Phone: 08-01-2007 tetanus toxoid, redu alyssia diphtheria toxoid, and acellular pertussis vaccine, adsorbed Jayne Au MD Work Phone: [facility] Work Phone: 2001 hepatitis A vaccine, unspecified formulation Jayne Au MD Work Phone: [facility] Work Phone: 2001 measles, mumps and rubella virus vaccine Jayne Au MD Work Phone: [employer] Work Phone: 2000 poliovirus vaccine, unspecified formulation Jayne Au MD Work Phone: [facility] Work Phone: 2000 haemophilus influenz ae type b conjugate and Hepatitis B vaccine Jayne Au MD Work Phone: [employer] Phone: Payers Date Payer Category Payer Unknown [id number] 2000 Unknown [id number] 2000 Unknown [id number] 2000 Unknown [id number] 1959 Unknown [id number] Social History Date Type Detail Facility Tobacco smoking stat [facility] Unknown if ever smoked [facility] Start: 2000 Sex Assigned At Not on file [facility] Start: 12-31-2016 End: 05-24-2020 Tobacco smoking status HIIS Never smoker [facility] Start: 12-31-2016 End: 05-24-2020 Tobacco use and exposure Never used [facility] Start: 05-24-2020 End: 07-22-2021 Alcohol intake Ex-drinker (finding) [facility] Start: 07-12-2021 End: 07-22-2021 Exposure to SARS-CoV-2 (event) Not sure [facility] Start: 04-29-2022 Alcohol intake Current drinke r of alcohol (finding) [employer] Phone: Start: 04-29-2022 Alcohol Comment occasional [employer] Phone: Progress note 07-22-2021 Note Date & Type Note Facility 07-22-2021 Note HNO ID: [id number] Author: Jermaine Moya MD Service: ? Author Type: Physician Type: Progress Notes Filed: 07/23/2021 11:22 AM Note Text: NAME: Anabel Barbosa [facility] NO.: [id number] DATE OF SERVICE: July 22, 2021 Some elements in this clinic note that are critical to medical decision making have been carefully reviewed and included from a prior clinic note dated: May 28, 2020 Referring Provider: Jayne Au Additional Clinicians involved in Anabel Barbosa's care: CC: Consultation for factor V leiden. ASSESSMENT: 20 year old woman who is otherwise healthy found to be heterozygous for Factor V Leiden mutation which represents a resistance to activated protein C. There is no recommended prophylaxis except for minimizing risk factors such as estrogen containing control, smoking, inactivity, , surgery and injury. It would be velez for her to have at least Bi-annual visits with a inner diameter grinder tool. PLAN: 1. RTC in 2 year, Repeat CBC. TREATMENT TO DATE: 1. N/A HPI: Updated Visit, July 22, 2021: Graduated from [employer] with communications major and sociology minor. 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 She is doing well and has no immediate issues or concerns. No thrombotic events. No excessive bleeding Initial Visit, May 28, 2020: Anabel Barbosa presents today Hematology and Oncology evaluation. She is a 19 year old female who is accompanied by her mother Kyara Rodriguez for consultation regarding a newly diagnosed Factor V Leiden. She is a heterozygote as is her sister. Workup was prompted because her Father had DVT and subsequent PE. The following workup showed him to have Factor V leiden. She has no other symptoms and has no notable risk factors for now. She was recently changed to a non-estrogen BCP. We discussed in detail potential risks of clotting. There was a concern for easy bruising but the patient states that this has not been an issue but may have been many (5-6) yearsago. She has no evidence of bruising on visible skin. She has multiple tattoos without any issues. Coags were normal as was her CBC, CMP. REVIEW OF SYSTEMS Per HPI and otherwise negative by full review of organ systems. ECOG PERFORMANCE STATUS: 0 PHYSICAL EXAMINATION: Vitals: BP 111/64 Pulse 78 Temp (Src) 98.8 (Temporal) Resp 16 Ht 4' 11.016 (1.50m) Wt 103 lb 9.6 oz (47.0kg) SpO2 100% LMP 06/26/2020 BMI 20.91 kg/(m2). Body surface area is 1.4 meters squared. Exam limited to gross visualization where appropriate due to COVID-19. Gen.: This is an age-appropriate patient in no acute distress. Head: Appears atraumatic with no visible lesions. Eyes: Pupils equally round and reactive to light, extraocular muscles are intact. Neck: Supple. Mouth: Mucous membranes appeared to be moist. Respiratory: Appears to be respiring comfortably. Neurologic: Nonfocal to gross visualization. Alert and oriented ?3. Psychiatric: No evidence of inappropriate anxiety or depression. Skin: Visible areas of skin without rash, lesions, wounds or petechiae. ALLERGIES: ALLERGIES Allergen Reactions - Penicillins Vomiting MEDICATIONS: desvenlafaxine ER (PRISTIQ) 50 mg 24 hr tablet Take 50 mg by mouth once daily. AKLIEF 0.005 % crea Norethindrone, Contraceptive, 0.35 mg tablet TAKE 1 TABLET BY MOUTH ONCE DAILY FOR 28 DAYS cetirizine (ZYRTEC) 10 mg tablet Take 10 mg by mouth as needed. LABORATORY VALUES: WBC (k/uL) Date Value 07/22/2021 7.11 RBC (m/uL) Date Value 07/22/2021 5.51 (H) Hemoglobin (g/dL) Date Value 07/22/2021 15.4 Hematocrit (%) Date Value 07/22/2021 46.1 (H) MCV (fL) Date Value 07/22/2021 83.7 MCH (pg) Date Value 07/22/2021 27.9 MCHC (g/dL) Date Value 07/22/2021 33.4 RDW-CV (%) Date Value 07/22/2021 12.5 Platelet Count (k/uL) Date Value 07/22/2021 314 MPV (fL) Date Value 07/22/2021 9.0 Glucose (mg/dL) Date Value 07/22/2021 65 (L) BUN (mg/dL) Date Value 07/22/2021 13 Creatinine (mg/dL) Date Value 07/22/2021 0.61 Sodium (mmol/L) Date Value 07/22/2021 140 Potassium (mmol/L) Date Value 07/22/2021 3.9 Chloride (mmol/L) Date Value 07/22/2021 102 CO2 (mmol/L) Date Value 07/22/2021 26 Protein, Total (g/dL) Date Value 07/22/2021 7.8 Albumin (g/dL) Date Value 07/22/2021 4.9 Calcium, Total (mg/dL) Date Value 07/22/2021 10.0 Alkaline Phosphatase (U/L) Date Value 07/22/2021 61 Bilirubin, Total (mg/dL) Date Value 07/22/2021 0.2 AST (U/L) Date Value 07/22/2021 18 ALT (U/L) Date Value 07/22/2021 18 DIAGNOSIS: (D68.51) Factor V Leiden carrier (HCC) (primary encounter diagnosis) Plan: CBC + DIFF PAST MEDICAL HISTORY Diagnosis Date - Asthma - Factor 5 Leiden mutation, heterozygous (HCC) - Seasonal allergic rhinitis History reviewed. No pertinent surgical history. Social History Tobacco Use - Smoking status: Never Smoker - Smokeless tobacco: Never Used S (more content not included)... [facility] History of Present illness Narrative 07-22-2021 Jermaine Moya MD - 07/22/2021 10:33 AM EDT Note Date & Type Note Facility 07-22-2021 History of Presen t illness Narrative Images from the original note were not included. NAME: Anabel Barbosa CLINIC NO.: [id number] DATE OF SERVICE: July 22, 2021 Some elements in this clinic note that are critical to medical decision making have been carefully reviewed and included from a prior clinic note dated: May 28, 2020 Referring Provider: Jayne Au Additional Clinicians involved in Anabel Barbosa's care: CC: Consultation for factor V leiden. ASSESSMENT: 20 year old woman who is otherwise healthy found to be heterozygous for Factor V Leiden mutation which represents a resistance to activated protein C. There is no recommended prophylaxis except for minimizing risk factors such as estrogen containing control, smoking, inactivity, , surgery and injury. It would be velez for her to have at least Bi-annual visits with a inner diameter grinder tool. PLAN: 1. RTC in 2 year, Repeat CBC. TREATMENT TO DATE: 1. N/A HPI: Updated Visit, July 22, 2021: Graduated from [employer] with communications major and sociology minor. 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 She is doing well and has no immediate issues or concerns. No thrombotic events. No excessive bleeding Initial Visit, May 28, 2020: Anabel Barbosa presents today Hematology and Oncology evaluation. She is a 19 year old female who is accompanied by her mother Kyara Rodriguez for consultation regarding a newly diagnosed Factor V Leiden. She is a heterozygote as is her sister. Workup was prompted because her Father had DVT and subsequent PE. The following workup showed him to have Factor V leiden. She has no other symptoms and has no notable risk factors for now. She was recently changed to a non-estrogen BCP. We discussed in detail potential risks of clotting. There was a concern for easy bruising but the patient states that this has not been an issue but may have been many (5-6) yearsago. She has no evidence of bruising on visible skin. She has multiple tattoos without any issues. Coags were normal as was her CBC, CMP. REVIEW OF SYSTEMS Per HPI and otherwise negative by full review of organ systems. ECOG PERFORMANCE STATUS: 0 PHYSICAL EXAMINATION: Vitals: BP 111/64 Pulse 78 Temp (Src) 98.8 (Temporal) Resp 16 Ht 4' 11.016 (1.50m) Wt 103 lb 9.6 oz (47.0kg) SpO2 100% LMP 06/26/2020 BMI 20.91 kg/(m^2). Body surface area is 1.4 meters squared. Exam limited to gross visualization where appropriate due to COVID-19. Gen.: This is an age-appropriate patient in no acute distress. Head: Appears atraumatic with no visible lesions. Eyes: Pupils equally round and reactive to light, extraocular muscles are intact. Neck: Supple. Mouth: Mucous membranes appeared to be moist. Respiratory: Appears to be respiring comfortably. Neurologic: Nonfocal to gross visualization. Alert and oriented 3. Psychiatric: No evidence of inappropriate anxiety or depression. Skin: Visible areas of skin without rash, lesions, wounds or petechiae. ALLERGIES: ALLERGIES Allergen Reactions Penicillins Vomiting MEDICATIONS: desvenlafaxine ER (PRISTIQ) 50 mg 24 hr tablet Take 50 mg by mouth once daily. AKLIEF 0.005 % crea Norethindrone, Contraceptive, 0.35 mg tablet TAKE 1 TABLET BY MOUTH ONCE DAILY FOR 28 DAYS cetirizine (ZYRTEC) 10 mg tablet Take 10 mg by mouth as needed. LABORATORY VALUES: WBC (k/uL) Date Value 07/22/2021 7.11 RBC (m/uL) Date Value 07/22/2021 5.51 (H) Hemoglobin (g/dL) Date Value 07/22/2021 15.4 Hematocrit (%) Date Value 07/22/2021 46.1 (H) MCV (fL) Date Value 07/22/2021 83.7 MCH (pg) Date Value 07/22/2021 27.9 MCHC (g/dL) Date Value 07/22/2021 33.4 RDW-CV (%) Date Value 07/22/2021 12.5 Platelet Count (k/uL) Date Value 07/22/2021 314 MPV (fL) Date Value 07/22/2021 9.0 Glucose (mg/dL) Date Value 07/22/2021 65 (L) BUN (mg/dL) Date Value 07/22/2021 13 Creatinine (mg/dL) Date Value 07/22/2021 0.61 Sodium (mmol/L) Date Value 07/22/2021 140 Potassium (mmol/L) Date Value 07/22/2021 3.9 Chloride (mmol/L) Date Value 07/22/2021 102 CO2 (mmol/L) Date Value 07/22/2021 26 Protein, Total (g/dL) Date Value 07/22/2021 7.8 Albumin (g/dL) Date Value 07/22/2021 4.9 Calcium, Total (mg/dL) Date Value 07/22/2021 10.0 Alkaline Phosphatase (U/L) Date Value 07/22/2021 61 Bilirubin, Total (mg/dL) Date Value 07/22/2021 0.2 AST (U/L) Date Value 07/22/2021 18 ALT (U/L) Date Value 07/22/2021 18 DIAGNOSIS: (D68.51) Factor V Leiden carrier (HCC) (primary encounter diagnosis) Plan: CBC + DIFF PAST MEDICAL HISTORY Diagnosis Date Asthma Factor 5 Leiden mutation, heterozygous (HCC) Seasonal allergic rhinitis History reviewed. No pertinent surgical history. Social History Tobacco Use Smoking status: Never Smoker Smokeless tobacco: Never Used Substance Use Topics Alcohol use: Not Currently Drug use: Not Currently History reviewed. No pertinent family history. Father with DVT and Factor V Leiden. Younger sister also is heterozygous for FVL. I spent a total of 20 minutes on the date of the service which included preparing to see the patient, [id number] patient care, completing clinical documentation and counseling and educating the patient/family/caregiver. Jermaine Moya MD, CPE [facility] [place], [place] CC: Jayne Au MD [address] [facility] [id number] Jayne Au MD [address] [facility] [id number] documented in this encounter [facility] Note 07-15-2021 Telephone Encounter - Lakeshia Philip MA - 07/15/2021 3:45 PM EDT Note Date & Type Note Facility 07-15-2021 Miscellaneous Notes Patient has an appt on 07/22/21. Would you like labs, if so please place orders. Lakeshia Philip MA documented in this encounter [facility] Evaluation note Note Date & Type Note Facility Evaluation note Diagnosis Factor V Leiden carrier (HCC)- Primary Primary hypercoagulable state documented in this encounter [facility] Evaluation note Note Date & Type Note Facility Evaluation note Diagnosis Factor V Leiden carrier (HCC)- Primary Primary hypercoagulable state documented in this encounter [facility] Evaluation note Note Date & Type Note Facility Evaluation note Diagnosis Irregular menses Irregular menstrual cycle Screening for malignant neoplasm of cervix Screening for malignant neoplasm of the cervix documented in this encounter [employer] Phone: Summary Purpose Family History No Family History Records FoundNo Family History Records FoundNo Family History Records FoundNo Family History Records Found Advance Directives No Advanced Directives Records FoundNo Advanced Directives Records FoundNo Advanced Directives Records FoundNo Advanced Directives Records Found Additional Source Comments Source Comments (unrecognize d section and content) In the event this informatio n is protected by the Federal Confidentiality of Alcohol and Drug Abuse Patient Records regulations: The Federal rules restrict any use of the information to criminally investigate or prosecute any alcohol or drug abuse patient.[facility] the event this information is protected by the Federal Confidentiality of Alcohol and Drug Abuse Patient Records regulations: The Federal rules restrict any use of the information to criminally investigate or prosecute any alcohol or drug abuse patient.[facility] the event this information is protected by the Federal Confidentiality of Alcohol and Drug Abuse Patient Records regulations: The Federal rules restrict any use of the information to criminally investigate or prosecute any alcohol or drug abuse patient.[facility] the event this information is protected by the Federal Confidentiality of Alcohol and Drug Abuse Patient Records regulations: The Federal rules restrict any use of the information to criminally investigate or prosecute any alcohol or drug abuse patient.[facility] INFORMATION SOURCE (unrecogn ized section and content) DATE CREATED AUTHOR 08/27/2020 [facility] DATE CREATED AUTHOR AUTHOR'S ORGANIZ ATION 07/25/2021 [facility] DATE CREATED AUTHOR AUTHOR'S ORGANIZ ATION 05/10/2022 Kirstin morales DATE CREATED AUTHOR AUTHOR'S ORGANIZ ATION 03/14/2023 [facility] EPIC Reason for Visit (unrecogniz ed section and content) Reason Comments Lab Orders Reason Comments Factor V carrier Care Teams (unrecognized sec tion and content) Office Equipment Mechanic Relationship Specialty Start Date End Date Jayne Au MD [address] [place] [id number] PCP - General Family Practice 05/15/20 Office Equipment Mechanic Relationship Specialty Start Date End Date Jayne Au MD [address] [place] [address] PCP - [facility] 05/15/20 Office Equipment Mechanic Relationship Specialty Start Date End Date Jayne Au MD [address] [place], [place] [id number] [phone] PCP - General 12/06/15 FOR RECORDS PERTAINING TO PATIENTS WHO ARE OR HAVE BEEN ENROLLED IN A CHEMICAL DEPENDENCY/SUBSTANCEABUSE PROGRAM, SOME INFORMATION MAY BE OMITTED. This clinical summary was aggregated from multiple sources. Caution should be exercised in using it in the provision of clinical care. This summary normalizes information from multiple sources, and as a consequence, information in this document may materially change the coding, format and clinical context of patient data. In addition, data may be omitted in some cases. CLINICAL DECISIONS SHOULD BE BASED ON THE PRIMARY CLINICAL RECORDS. [facility] [employer] provides no warranty or guarantee of the accuracy or completeness of information in this document.
[2023-03-21 09:30] LABS: Basophils Percent Auto 0.4 % (0.2-2.0); Eosinophils Absolute Auto 0.2 10^3/uL (0.0-0.7); Eosinophils Percent Auto 2.6 % (0.9-7.0); Hematocrit 44.1 % (36.0-48.0); Hemoglobin 14.5 g/dL (12.0-16.0); Immature Granulocytes Abs Auto 0.04 10^3/uL (0.00-0.03); Immature Granulocytes Pct Auto 0.5 % (0.0-0.5); Lymphocytes Absolute Auto 2.2 10^3/uL (1.2-3.8); Lymphocytes Percent Auto 29.1 % (20.5-60.0); Mean Corpuscular HGB Conc 32.9 g/dL (29.9-35.2); Mean Corpuscular Hemoglobin 27.4 pg (26.7-34.0); Mean Corpuscular Volume 83.4 fL (81.0-99.0); Mean Platelet Volume 9.4 fL (9.5-13.5); Monocytes Absolute Auto 0.5 10^3/uL (0.3-0.8); Monocytes Percent Auto 6.1 % (1.7-12.0); Neutrophils Absolute Auto 4.6 10^3/uL (1.4-6.5); Neutrophils Percent Auto 61.3 % (43.0-75.0); Platelet Count 322 10^3/uL (150-450); Red Blood Count 5.29 10^6/uL (4.20-5.40); Red Cell Distribution Width 13.1 % (11.0-15.0); White Blood Count 7.4 10^3/uL (4.0-11.0)
[2023-03-21 09:39] LABS: Estimated Average Glucose 100 mg/dL; Glycohemoglobin A1C 5.1 % (4.5-6.2)
[2023-03-21 10:48] LABS: Alanine Aminotransferase 29 U/L (14-59); Albumin Level 4.1 g/dL (3.4-5.0); Alkaline Phosphatase 64 U/L (46-116); Anion Gap 15.2; Aspartate Amino Transferase 15 U/L (15-37); BUN Creatinine Ratio 15.7; Bilirubin Total 0.4 mg/dL (0.2-1.0); Calcium 9.4 mg/dL (8.5-10.1); Carbon Dioxide 25.6 mmol/L (21.0-32.0); Chloride 104 mmol/L (98-107); Chol HDL Ratio 3.3; Cholesterol 199 mg/dL (<=200); Estimated GFR (African America >60 (>=60); Estimated GFR (Non-African Ame >60 (>=60); Free T3 2.64 pg/mL (2.18-3.98); Glucose 87 mg/dL (74-106); HDL Cholesterol 61 mg/dL (40-60); Potassium 3.8 mmol/L (3.5-5.1); Sodium 141 mmol/L (136-145); Thyroid Stimulating Hormone 2.203 uIU/mL (0.358-3.740); Total Protein 8.1 g/dL (6.4-8.2); Triglycerides 48 mg/dL (<=150); VLDL CHOLESTEROL 9.6 mg/dL
[2023-03-22 12:07] LABS: Insulin 24.3 uIU/mL (2.6-24.9)
== END 2023-03-21 08:44 | disposition home or self-care (01) ==
LOC: LAB 08:44
PROVIDERS: PCP Family Medicine; Visit Provider Family Medicine
DX: Z00.00 Encounter for general adult medical examination without abnormal findings (principal)
CPT/HCPCS: 36415; 80053; 80061; 82306; 83036; 83525; 83540; 84436; 84443; 84481; 85025